=== PATIENT | male | born 1965 | race Hispanic/Latino ===

== ENCOUNTER 2020-04-08 06:19 | Emergency (ER) | payer SELFPAY ==
--- NOTE | 2020-04-08 06:40 | ED.PDOC ---
History of Present Illness - General Source: patient Exam Limitations: no limitations - History of Present Illness Initial Comments: SEVERAL DAY HISTORY OF INCREASING SOB. HAD FRIEND RECENTLY OF PNEUMONIA AND THIS CONCERNS HIM. HE WAS SEEN AT LOCAL PCP OFFICE YESTERDAY AND STARTED ON ABX AND PREDNISONE, NO DIAGNOSTIC TESTING HAS BEEN DONE YET ACCORDING TO PATIENT. SYMPTOMS ARE NOT BETTER THIS MORNING SO PRESENTS TO ER. Timing/Duration: days - 2-3 Severity: moderate Activities at Onset: none Possible Cause: no prior episodes Improving Factors: nothing Worsening Factors: nothing Respiratory Risk Factors: no cause identified <Robin Gaona - Last Filed: 04/08/20 06:44> <Elina Menchaca - Last Filed: 04/08/20 08:01> - General Chief Complaint: Respiratory Problem Time Seen by Provider: 04/08/20 06:35 - History of Present Illness Allergies/Adverse Reactions: Allergies NO KNOWN ALLERGY Allergy (Verified 04/08/20 06:41) Home Medications: Ambulatory Orders NK 04/08/20 Review of Systems - Review of Systems Constitutional: States: malaise, weakness. Denies: chills, diaphoresis, fever EENTM: Denies: nose congestion, throat pain Respiratory: States: cough - CHRONIC FOR MANY YEARS, DENIES KNOWN CAUSE, ALERGIES, ASTHMA, short of breath Gastrointestinal/Abdominal: States: no symptoms reported Genitourinary: States: no symptoms reported Musculoskeletal: States: no symptoms reported Skin: States: no symptoms reported Neurological: States: no symptoms reported Endocrine: States: no symptoms reported Hematologic/Lymphatic: States: no symptoms reported <Robin Gaona - Last Filed: 04/08/20 06:44> Physical Exam - Physical Exam General Appearance: Alert, Anxious, Well Developed, Well Groomed Eyes, Ears, Nose, Throat Exam: normal ENT inspection, TMs normal, pharynx normal Neck: non-tender, full range of motion, supple, normal inspection Respiratory: chest non-tender, lungs clear, normal breath sounds - EXCEPT HINT OF CRACKLES LEFT BASE, no respiratory distress, no accessory muscle use Cardiovascular/Chest: normal peripheral pulses, regular rate, rhythm, no edema, no gallop, no JVD, no murmur Gastrointestinal/Abdominal: normal bowel sounds, non tender, soft, no organomegaly Extremity: normal range of motion, non-tender, normal inspection Neurologic: special needs tutor II-XII nml as tested, no motor/sensory deficits, alert, normal mood/affect, oriented x 3 Skin Exam: normal color, warm/dry Lymphatic: no adenopathy <Robin Gaona - Last Filed: 04/08/20 06:44> Progress - Progress Progress: 04/08/20 07:53 This is a 54-year-old male that presents to the emergency department Covid pneumonia oxygen saturations are normal through the patient antibiotics discharge the patient home return precautions explained to the patient his verbalized understandingIsolation precautions explained to the patient as well following the CDC guidelines he is verbalized understanding <Elina Menchaca - Last Filed: 04/08/20 08:01> Departure <Robin Gaona - Last Filed: 04/08/20 06:44> - Departure Comments: Please return to the emergency department immediately become hypoxic as discussed in the emergency department today before discharge. Return to the emergency department you have any chest pain worsening of the shortness of breath or you have any further concerns. Patient to follow-up with your primary care physician in 1 to 2 days <Elina Menchaca - Last Filed: 04/08/20 08:01> - Departure Clinical Impression: Cough, COVID-19, Pneumonia Disposition: Discharge to Home or Self Care Condition: Fair Departure Forms: ED Discharge - Pt. Copy, Patient Portal Self Enrollment Instructions: Coronavirus Disease 2019 (COVID-19) Overview, Coronavirus Disease 2019 (COVID-19) (DC), Preventing the Spread of an Infectious Disease Home Medications: Ambulatory Orders NK 04/08/20
--- NOTE | 2020-04-08 07:13 | RAD ---
EXAM: Chest Radiography COMPARISON: None. INDICATION: MAIN SOB FINDINGS: PA and lateral views of the chest demonstrate(s) a normal cardiomediastinal silhouette. No pneumothorax or pleural effusion. There are consolidations in the lateral left and right lower lungs. Osseous structures are intact. IMPRESSION: Multifocal pneumonia. Electronically signed by: Bryce Narayan MD 04/08/2020 7:11 AM [employer]
[2020-04-08] MEDS ORDERED: AZITHROMYCIN IV 500 MG in SODIUM CHLORIDE 0.9% 250ML 250 ML IVPB ONE (07:33)
[2020-04-08] MEDS ORDERED: cefTRIAXone SODIUM 1 GM in SODIUM CHL 0.9% 50ML MIN-BAG+ 50 ML IVPB ONE (07:34)
[2020-04-08] MEDS ORDERED: DEXAMETHASONE INJ 10 MG/ML VIAL IV ONE (07:34)
[2020-04-08] MEDS ORDERED: SODIUM CHLORIDE 0.9% 500ML 500 ML IVS ONE (07:38)
[2020-04-08 11:19] VITALS: BP 116/76; TEMP 98.6; O2SAT 95
== END 2020-04-08 10:57 | disposition home or self-care (01) ==
LOC: ER 06:19
DX: U07.1 COVID-19 (principal); J12.82 Pneumonia due to coronavirus disease 2019
CPT/HCPCS: 36415; 71046; 80053; 84484; 85025; 87635; 93005; J0456; J0696; J1100; J7040; J7050